=== PATIENT | male | born 1990 | race Caucasian/White ===

== ENCOUNTER 2020-01-26 15:55 | Emergency (ER) | payer MEDICAID ==
[2020-01-26] MEDS ORDERED: Ondansetron 4 MG Tab.DIS PO ONE (16:00)
[2020-01-26] MEDS ORDERED: HYDROmorphone 2 MG/ML SDV IVPUSH ONE ×2 (16:22→18:13)
[2020-01-26] MEDS ORDERED: Metoclopramide 10 MG/2 ML SDV IVPUSH ONE (16:23)
--- NOTE | 2020-01-26 16:29 | EDM.PDOC ---
ED HPI GENERAL MEDICAL PROBLEM - General Chief Complaint: Skin Complaint Stated Complaint: RASHES Time Seen by Provider: 01/26/20 16:10 Source of Information: Reports: Patient, RN History Limitations: Reports: Other (lack of old records) - History of Present Illness INITIAL COMMENTS - FREE TEXT/NARRATIVE: 29 yo male presents with a rash, low back pain, and vomiting. He is from [place] and is visiting his grandparents near here. He just returned from vacationing in [place], [place] where he was seen for chronic nose bleeds and admission was offered, but he declined. They told him there was "something wrong with his blood". He apparently signed himself out because "he had to get home". Once back in [place] he did not seek medical care. Since getting back to [place] he has developed a nonpruritic rash all over his body. He says the low back pain he has had for several weeks and is getting worse. He denies any injury to his back. He denies fever, hematuria, hematochezia, hematemesis or melena. His nose continues to bleed somewhat slowly. The nausea and vomiting is new this afternoon. He has no abdominal pain. Can't recall the name of the [facility] he was a patient in. Onset: Gradual Duration: Week(s):, Getting Worse Location: Reports: Face (epistaxis), Back (pain from the mid back down.), Generalized (skin rash) Quality: Reports: Ache (back) Severity: Moderate Improves with: Reports: None Worsens with: Reports: Other (time) Context: Reports: Other (See HPI) Associated Symptoms: Reports: Loss of Appetite, Malaise, Nausea/Vomiting, Rash. Denies: Confusion, Chest Pain, Cough, Diaphoresis, Fever/Chills, Headaches, Seizure, Shortness of Breath, Syncope Treatments CHILD SPECIALIST: Reports: Other (see below) (none) Back Pain Score (Numeric/FACES): 7 - Related Data Allergies Allergy/AdvReac Type Severity Reaction Status Date / Time No Known Allergies Allergy Verified 01/26/20 16:13 Home Meds: Home Meds NK [No Known Home Meds] 01/26/20 [History] ED ROS GENERAL - Review of Systems Review Of Systems: See Below Constitutional: Reports: Decreased Appetite HEENT: Reports: Nosebleed (not new) Respiratory: Reports: No Symptoms Cardiovascular: Reports: No Symptoms Endocrine: Reports: No Symptoms GI/Abdominal: Reports: Decreased Appetite, Nausea, Vomiting. Denies: Abdominal Pain, Black Stool, Bloody Stool, Constipation, Diarrhea, Distension, Flatus, Hematemesis, Hematochezia, Melena : Reports: No Symptoms Musculoskeletal: Reports: Back Pain (from mid back and down) Skin: Reports: Rash. Denies: Jaundice Neurological: Reports: No Symptoms Psychiatric: Reports: No Symptoms ED EXAM, SKIN/RASH Exam: See Below Exam Limited By: No Limitations General Appearance: Alert, WD/WN, Mild Distress Eye Exam: Bilateral Eye: Normal Inspection Ears: Normal External Exam, Normal Canal, Hearing Grossly Normal Nose: Other (slow ongoing epistaxis). No: No Blood Throat/Mouth: Normal Inspection, Normal Lips, Normal Oropharynx, Normal Voice, No Airway Compromise Head: Atraumatic, Normocephalic Neck: Normal Inspection Respiratory/Chest: No Respiratory Distress, Lungs Clear, Normal Breath Sounds, No Accessory Muscle Use Cardiovascular: Regular Rate, Rhythm, No Edema, Tachycardia GI/Abdominal: Normal Bowel Sounds, Soft, Non-Tender, No Distention Back Exam: Normal Inspection, Vertebral Tenderness (thoracic and lumbar spine). No: CVA Tenderness (R), CVA Tenderness (L), Muscle Spasm, Paraspinal Tenderness Extremities: Normal Inspection, Normal Range of Motion, Non-Tender, No Pedal Edema Neurological: Alert, Oriented, CN II-XII Intact, Normal Cognition, No Motor/ Sensory Deficits Psychiatric: Normal Affect, Normal Mood Skin: Warm, Dry, Intact, Normal Color, Rash. No: No Rash Location, Skin: Generalized Characteristics: Other (Purpura(palpable)) Course - Vital Signs Text/Narrative:: Case discussed with Dr. Whyte, hospitalist at [facility], at 1845h Called Dr. Montes [place] [facility], at 1910h, accepted @ 1932h Last Recorded V/S: Last Vital Signs Temp 36.0 C L 01/26/20 19:34 Pulse 95 01/26/20 19:34 Resp 18 01/26/20 19:34 BP 138/54 L 01/26/20 19:34 Pulse Ox 100 01/26/20 19:34 - Orders/Labs/Meds Orders: Active Orders 24 hr Category Date Time Status Lumbar Spine 2 or 3V [CR] Stat Exams 01/26/20 17:10 Taken INR,PT,PROTHROMBIN TIME [COAG] Stat Lab 01/26/20 19:24 Ordered PTT,PARTIAL THROMBOPLSTIN TIME [COAG] Stat Lab 01/26/20 19:24 Ordered UA W/MICROSCOPIC [URIN] Stat Lab 01/26/20 16:25 Ordered Lactated Ringers [Ringers, Lactated] 1,000 ml Med 01/26/20 16:30 Active IV BOLUS NS + KCl 20mEq/L [Normal Saline with 20 mEq KCl] 1,000 Med 01/26/20 17:30 Active ml IV ASDIRECTED Medication Orders Lactated Ringer's (Ringers, Lactated) 1,000 mls @ 1,000 mls/hr IV BOLUS LAILA Last Admin: 01/26/20 16:42 Dose: 1,000 mls/hr Potassium Chloride/Sodium Chloride (Normal Saline With 20 Meq Kcl) 1,000 mls @ 500 mls/hr IV ASDIRECTED LAILA Last Infusion: 01/26/20 18:33 Dose: 999 mls/hr Admin: 01/26/20 17:55 Dose: 500 mls/hr Labs: Laboratory Tests 01/26/20 01/26/20 01/26/20 Range/Units 16:30 16:30 16:30 WBC 5.9 (4.5-12.0) X10-3/uL RBC 3.91 L (4.30-5.75) x10(6)uL Hgb 11.3 L (13.5-17.8) g/dL Hct 36.2 (30.0-51.3) % MCV 92.8 (80-96) fL MCH 28.9 (27.7-33.6) pg MCHC 31.2 L (32.2-35.4) g/dL RDW 16.4 H (11.5-15.5) % Plt Count 242 (125-369) X10(3)uL Sodium 138 (135-145) mmol/L Potassium 3.3 L (3.5-5.3) mmol/L Chloride 101 (100-110) mmol/L Carbon Dioxide 15 L (21-32) mmol/L BUN 8 (7-18) mg/dL Creatinine 1.2 (0.70-1.30) mg/dL Est Cr Clr Drug Dosing 109.50 mL/min Estimated GFR (MDRD) > 60 (>60) BUN/Creatinine Ratio 6.7 L (9-20) Glucose 117 H (80-116) mg/dL Calcium 8.9 (8.6-10.2) mg/dL Magnesium (1.8-2.5) mg/dL Total Bilirubin 5.1 H (0.1-1.3) mg/dL Direct Bilirubin (0.10-0.20) mg/dL Indirect Bilirubin (0.0-1.0) mg/dL AST 137 H (5-25) IU/L ALT 34 (12-36) U/L Alkaline Phosphatase 138 H (56-112) IU/L Lactate Dehydrogenase 174 (85-227) U/L Total Protein 9.6 H (6.0-8.0) g/dL Albumin 3.5 (3.5-5.2) g/dL Globulin 6.1 g/dL Albumin/Globulin Ratio 0.6 01/26/20 01/26/20 Range/Units 16:30 16:30 WBC (4.5-12.0) X10-3/uL RBC (4.30-5.75) x10(6)uL Hgb (13.5-17.8) g/dL Hct (30.0-51.3) % MCV (80-96) fL MCH (27.7-33.6) pg MCHC (32.2-35.4) g/dL RDW (11.5-15.5) % Plt Count (125-369) X10(3)uL Sodium (135-145) mmol/L Potassium (3.5-5.3) mmol/L Chloride (100-110) mmol/L Carbon Dioxide (21-32) mmol/L BUN (7-18) mg/dL Creatinine (0.70-1.30) mg/dL Est Cr Clr Drug Dosing mL/min Estimated GFR (MDRD) (>60) BUN/Creatinine Ratio (9-20) Glucose (80-116) mg/dL Calcium (8.6-10.2) mg/dL Magnesium 1.3 L (1.8-2.5) mg/dL Total Bilirubin 5.1 H (0.1-1.3) mg/dL Direct Bilirubin 2.83 H (0.10-0.20) mg/dL Indirect Bilirubin 2.3 H (0.0-1.0) mg/dL AST (5-25) IU/L ALT (12-36) U/L Alkaline Phosphatase (56-112) IU/L Lactate Dehydrogenase (85-227) U/L Total Protein (6.0-8.0) g/dL Albumin (3.5-5.2) g/dL Globulin g/dL Albumin/Globulin Ratio Meds: Medications Generic Name Dose Route Start Last Admin Trade Name Freq PRN Reason Stop Dose Admin Lactated Ringer's 1,000 mls @ 1,000 mls/hr 01/26/20 16:30 01/26/20 16:42 Ringers, Lactated IV 1,000 mls/hr BOLUS LAILA Administration Potassium Chloride/Sodium Chloride 1,000 mls @ 500 mls/hr 01/26/20 17:30 18:33 Normal Saline With 20 Meq Kcl IV 999 mls/hr ASDIRECTED LAILA Infusion Discontinued Medications Generic Name Dose Route Start Last Admin Trade Name Freq PRN Reason Stop Dose Admin Hydromorphone HCl 1 mg 01/26/20 16:22 01/26/20 16:42 Dilaudid IVPUSH 01/26/20 16:23 1 mg ONETIME ONE Administration Hydromorphone HCl 1 mg 01/26/20 18:13 01/26/20 18:18 Dilaudid IVPUSH 01/26/20 18:14 1 mg ONETIME ONE Administration Magnesium Sulfate 2 gm/ 104 mls @ 100 mls/hr 01/26/20 17:39 01/26/20 18:33 Dextrose/Water IV 01/26/20 18:41 Not Given ONETIME ONE Magnesium Sulfate 2 gm/ Premix 50 mls @ 150 mls/hr 01/26/20 17:55 01/26/20 18 :00 IV 01/26/20 18:14 150 mls/hr ONETIME ONE Administration Metoclopramide HCl 10 mg 01/26/20 16:23 01/26/20 16:42 Reglan IVPUSH 01/26/20 16:24 10 mg ONETIME ONE Administration Ondansetron HCl 4 mg 01/26/20 16:00 01/26/20 16:05 Zofran Odt PO 01/26/20 16:01 4 mg ONETIME ONE Administration Ondansetron HCl 4 mg 01/26/20 18:11 01/26/20 18:18 Zofran IVPUSH 01/26/20 18:12 4 mg ONETIME ONE Administration Potassium Chloride 30 meq 01/26/20 17:09 01/26/20 17:16 Klor-Con 10 PO 01/26/20 17:10 30 meq ONETIME ONE Administration - Radiology Interpretation Free Text/Narrative:: Lumbar spine X-rays-Loss of normal lordosis, no bony pathology noted. - Re-Assessments/Exams Free Text/Narrative Re-Assessment/Exam: 01/26/20 17:44 Unable to tolerate the oral potassium, vomited this up. Departure - Departure Time of Disposition: 19:55 Disposition: DC/Tfer to [facility] Condition: Fair Clinical Impression: Palpable purpura, Hypokalemia, Hypomagnesemia, Hyperbilirubinemia Nausea and vomiting Qualifiers: Vomiting type: unspecified Vomiting Intractability: non-intractable Qualified Code(s): R11.2 - Nausea with vomiting, unspecified Low back pain Qualifiers: Chronicity: unspecified Back pain laterality: midline Sciatica presence: without sciatica Qualified Code(s): M54.5 - Low back pain - Discharge Information *PRESCRIPTION DRUG MONITORING PROGRAM REVIEWED*: Not Applicable *COPY OF PRESCRIPTION DRUG MONITORING REPORT IN PATIENT SOPHIA: Not Applicable Referrals: PCP,None [Primary Care Provider] - Forms: ED Department Discharge Sepsis Event Note (ED) - Focused Exam Vital Signs: Vital Signs Temp Pulse Resp BP Pulse Ox 01/26/20 19:34 36.0 C L 95 18 138/54 L 100 01/26/20 18:26 36.3 C 99 18 155/56 H 100 01/26/20 17:20 107 H 18 165/78 H 95 01/26/20 16:30 120 H 18 140/67 100 01/26/20 16:07 36.3 C 124 H 18 128/71 100 - My Orders Last 24 Hours: My Active Orders 01/26/20 16:25 UA W/MICROSCOPIC [URIN] Stat 01/26/20 16:30 Lactated Ringers [Ringers, Lactated] 1,000 ml IV BOLUS 01/26/20 17:10 Lumbar Spine 2 or 3V [CR] Stat 01/26/20 17:30 NS + KCl 20mEq/L [Normal Saline with 20 mEq KCl] 1,000 ml IV ASDIRECTED 01/26/20 19:24 INR,PT,PROTHROMBIN TIME [COAG] Stat PTT,PARTIAL THROMBOPLSTIN TIME [COAG] Stat - Assessment/Plan Last 24 Hours: My Active Orders 01/26/20 16:25 UA W/MICROSCOPIC [URIN] Stat 01/26/20 16:30 Lactated Ringers [Ringers, Lactated] 1,000 ml IV BOLUS 01/26/20 17:10 Lumbar Spine 2 or 3V [CR] Stat 01/26/20 17:30 NS + KCl 20mEq/L [Normal Saline with 20 mEq KCl] 1,000 ml IV ASDIRECTED 01/26/20 19:24 INR,PT,PROTHROMBIN TIME [COAG] Stat PTT,PARTIAL THROMBOPLSTIN TIME [COAG] Stat
[2020-01-26] MEDS ORDERED: Lactated Ringers 1,000 ML IV SCH (16:30)
[2020-01-26] MEDS ORDERED: Potassium Chloride 10 MEQ Tab.ER PO ONE (17:09)
[2020-01-26] MEDS: NS + KCl 20mEq/L 1,000 ML IV SCH ×2 (17:55→19:53)
[2020-01-26] MEDS ORDERED: Magnesium Sulfate/Water 2 GM in Premix Bag 1 BAG IV ONE (17:55)
[2020-01-26] MEDS ORDERED: Ondansetron 4 MG/2 ML SDV IVPUSH ONE (18:11)
[2020-01-26] MEDS ORDERED: NS + KCl 20mEq/L 1,000 ML IV SCH (20:00)
--- NOTE | 2020-01-27 17:42 | CR ---
INDICATION: Low back pain progressive times three weeks. LUMBOSACRAL SPINE: Three views of the lumbosacral spine were obtained 01/26/20 - no comparisons. Decreased disc space is noted at the L3-4, L4-5 levels and no significant hypertrophic degenerative changes are noted. Pedicles appear to be grossly intact. Alignment of vertebral elements appears to be normal. There does appear to be some hypertrophic change posteriorly off the vertebral body L3 caudal aspect. Overall bone density appears to be normal. No acute bone or joint abnormality was suggested. Sacroiliac joints were intact. IMPRESSION: Findings are compatible with hypertrophic degenerative changes and disc disease at L3-4 and probable disc disease at L4-5. MTDD
== END 2020-01-26 20:15 ==
LOC: FB.ED 15:55
DX: E87.6 Hypokalemia (principal); E83.42 Hypomagnesemia; E80.6 Other disorders of bilirubin metabolism; D69.2 Other nonthrombocytopenic purpura; M54.5 Low back pain; M54.6 Pain in thoracic spine; R11.2 Nausea with vomiting, unspecified
CPT/HCPCS: 36415; 72100; 80053; 82247; 82248; 83615; 83735; 85027; 85610; 85730; 96361; 96365; 96375; 96376; 99285; A9270; J1170; J2405; J2765; J3475; J3480; J7120